=== PATIENT | female | born 1990 | race Caucasian/White ===

== ENCOUNTER 2021-04-08 20:26 | Observation (INO) | payer OTHER ==
[~2021-04-08] VITALS: Ht 157.5 cm; Wt 70.8 kg
== END 2021-04-08 23:15 | disposition home or self-care (01) ==
LOC: SPU 20:26
PROVIDERS: ADMIT Obstetrics & Gynecology; ATTEND Obstetrics & Gynecology
DX: O26.853 Spotting complicating pregnancy, third trimester (principal); O62.9 Abnormality of forces of labor, unspecified; Z3A.39 39 weeks gestation of pregnancy
CPT/HCPCS: G0378; G0379; 59025; 81002